=== PATIENT | male | born 1995 | race Two or more races ===

== ENCOUNTER 2022-02-22 10:44 | Emergency (ER) | payer SELFPAY ==
[~2022-02-22] VITALS: Ht 162.6 cm; Wt 82.0 kg
[2022-02-22 10:47] VITALS: BP 140/90
[2022-02-22] MEDS ORDERED: TETANUS, DIPHTHERIA, PERTUSSIS VAC/PF 0.5ML (>10YR OLD) IM ONE (11:30)
[2022-02-22] MEDS ORDERED: LIDOCAINE HCL/PF 1% 10 MG/ML 5ML VIAL INFIL ONE (11:30)
[2022-02-22] MEDS ORDERED: BACITRACIN ZINC OINT UDPKT TOP ONE (11:30)
[2022-02-22] MEDS ORDERED: ACETAMINOPHEN 325MG TABLET PO ONE (11:30)
== END 2022-02-22 17:01 | disposition left against medical advice (07) ==
LOC: ER 10:44
DX: S01.81XA Laceration without foreign body of other part of head, initial encounter (principal); X58.XXXA Exposure to other specified factors, initial encounter; Y93.89 Activity, other specified; Y92.89 Other specified places as the place of occurrence of the external cause; Y99.8 Other external cause status
CPT/HCPCS: 12011; 99283; J3490; Z7610